=== PATIENT | male | born 1970 | race Caucasian/White ===

== ENCOUNTER 2017-01-28 11:32 | Emergency (ER) | payer MEDICAID ==
[~2017-01-28] VITALS: Ht 177.8 cm; Wt 78.0 kg
[2017-01-28 11:48] VITALS: BP 133/76
[2017-01-28] MEDS ORDERED: MIRT15TA PO (11:51)
[2017-01-28] MEDS ORDERED: QUET50TA11 PO (11:51)
== END 2017-01-28 13:45 | disposition home or self-care (01) ==
LOC: ER 13:26
DX: R21 Rash and other nonspecific skin eruption (principal); R07.89 Other chest pain; Z79.899 Other long term (current) drug therapy; Z87.891 Personal history of nicotine dependence
CPT/HCPCS: 99282